=== PATIENT | male | born 1950 | race Caucasian/White ===

== ENCOUNTER 2023-11-06 14:28 | Inpatient (IN) | payer MEDICARE, MEDICAID ==
[~2023-11-06] VITALS: Ht 172.7 cm; Wt 68.2 kg
[~2023-11-06 14:28] MED LIST: FLO0.4C PO; METH20TA PO; OMEP-84 PO
[2023-11-06] MEDS: normal saline 1000ml 1,000 ML IV ONE (15:37)
[2023-11-06 16:01] LABS: EOSINOPHILS % (AUTO) 0.1 % (0-6); HEMOGLOBIN 12.7 g/dl (14.0-17.9); MEAN PLATELET VOLUME 7.1 FL (7.4-10.4); MONOCYTES # (AUTO) 0.5 X10'3 (0-0.9)
[2023-11-06 16:03] LABS: BASOPHILS # (AUTO) 0.1 X10'3 (0-0.2); BASOPHILS % (AUTO) 0.5 % (0-1); HEMATOCRIT 37.9 % (42.0-52.0); LYMPHOCYTES # (AUTO) 9.5 X10'3 (1.1-4.8); LYMPHOCYTES % (AUTO) 55.4 % (21-51); MEAN CORPUSCULAR HGB CONC 33.4 g/dL (33.0-36.5); MEAN CORPUSCULAR VOLUME 92.7 FL (78-98); MONOCYTES % (AUTO) 2.9 % (2-12); NEUTROPHILS # (AUTO) 7.1 X10'3 (1.8-7.7); NEUTROPHILS % (AUTO) 41.1 % (42-75); PLATELET COUNT 382 X10'3 (140-440); RED BLOOD COUNT 4.09 X10'6 (4.70-6.10); RED CELL DISTRIBUTION WIDTH 14.2 % (11.5-14.5); WHITE BLOOD COUNT 17.2 X10'3 (4.5-11.0)
[2023-11-06 16:33] LABS: ALANINE AMINOTRANSFERASE 83 U/L (12-78); ALBUMIN 2.6 G/DL (3.4-5.0); ALBUMIN/GLOBULIN RATIO 0.6 (1.1-1.5); ALKALINE PHOSPHATASE 64 IU/L (46-116); ANION GAP 10 (8-16); ASPARTATE AMINO TRANSFERASE 58 U/L (10-37); BILIRUBIN,TOTAL 0.6 MG/DL (0.1-1.0); BLOOD UREA NITROGEN 17 MG/DL (7-18); BUN/CREATININE RATIO 11.3 (10.0-20.0); CALCIUM 8.6 MG/DL (8.5-10.1); CHLORIDE 106 MMOL/L (99-107); GLUCOSE 122 MG/DL (70-104); POTASSIUM 3.6 MMOL/L (3.5-5.1); SODIUM 142 MMOL/L (135-145); TOTAL CARBON DIOXIDE 26.3 MMOL/L (24-32); TOTAL PROTEIN 6.7 G/DL (6.4-8.2); eCRCL 41 ML/MIN; eGFR 46 ML/MIN
[2023-11-06 18:20] LABS: BILIRUBIN,URINE NEGATIVE (Neg); CLARITY,URINE SLIGHTLY CLOUDY (Clear); COLOR,URINE YELLOW (Yellow); GLUCOSE, URINE NEGATIVE (Neg); KETONES,URINE TRACE mg/dl (Neg); LEUKOCYTE ESTERASE ,URINE NEGATIVE (Neg); NITRITES, URINE NEGATIVE (Neg); OCCULT BLOOD,URINE TRACE-INTACT (Neg); PROTEIN,URINE NEGATIVE (Neg); UROBILINOGEN,URINE 0.2 E.U/dL (0.2-1.0)
[2023-11-06 18:21] LABS: UA COLLECTION TYPE CLN CATCH MIDSTREAM
[2023-11-06 18:29] LABS: SQUAMOUS EPITHELIAL CELL,UR FEW /LPF (FEW)
[2023-11-06 18:32] LABS: BACTERIA,URINE FEW /HPF (Neg); HYALINE CASTS 0-3 /LPF (NEGATIVE); SPERM MANY /HPF (NEGATIVE)
[2023-11-06] MEDS: CefTRIAXone 2gm/D5W 50ml BAG 50 ML IV STA (19:26)
[2023-11-06] MEDS ORDERED: TERA1CAP4 (19:51)
[2023-11-06] MEDS ORDERED: acetaminophen 325mg tablet PO PRN (20:25)
[2023-11-06] MEDS ORDERED: mag hydrox/Alum hydrox/simeth 30ml oral suspension PO PRN (20:25)
[2023-11-06] MEDS ORDERED: potassium Cl 20 mEq SR tablet PO PRN (20:25)
[2023-11-06] MEDS ORDERED: morphine 2 MG/ML inj. syringe IV PRN ×2 (20:25)
[2023-11-06] MEDS ORDERED: potassium Cl 40MEQ/1/2NS 520ml 520 ML IV PRN (20:25)
[2023-11-06] MEDS ORDERED: magnesium sulf-water 4G/100mL 100 ML IV PRN (20:25)
[2023-11-06] MEDS ORDERED: magnesium hydroxide 30ml (MOM) UD suspension PO PRN (20:25)
[2023-11-06] MEDS ORDERED: magnesium sulf-water 2g/50mL 50 ML IV PRN (20:25)
[2023-11-06] MEDS ORDERED: magnesium Cl slow-release 64mg tablet PO PRN (20:25)
[2023-11-06] MEDS ORDERED: ondansetron/PF 4mg/2ml inj IV PRN (20:25)
[2023-11-06 21:21] LABS: TOTAL CELLS COUNTED 100
[2023-11-06 21:22] LABS: PLATELET ESTIMATE NORMAL; SMUDGE CELLS 1+
[2023-11-06 21:55] VITALS: BP 148/89; PULSE 82; RESP 16; TEMP 97; O2SAT 95
[2023-11-06] MEDS: normal saline 1000ml 1,000 ML IV SCH (22:00)
[2023-11-06] MEDS: tamsulosin 0.4mg capsule PO SCH (23:53)
[2023-11-06] MEDS: pantoprazole 40 MG vial IV ONE (23:53)
[2023-11-07 04:10] LABS: BASOPHILS # (AUTO) 0.1 X10'3 (0-0.2); BASOPHILS % (AUTO) 0.5 % (0-1); EOSINOPHILS # (AUTO) 0.1 X10'3 (0-0.9); HEMOGLOBIN 11.8 g/dl (14.0-17.9); MEAN PLATELET VOLUME 7.5 FL (7.4-10.4); NEUTROPHILS # (AUTO) 5.4 X10'3 (1.8-7.7); RED CELL DISTRIBUTION WIDTH 14.1 % (11.5-14.5); WHITE BLOOD COUNT 18.2 X10'3 (4.5-11.0)
[2023-11-07 04:14] LABS: EOSINOPHILS % (AUTO) 0.6 % (0-6); HEMATOCRIT 35.4 % (42.0-52.0); LYMPHOCYTES # (AUTO) 11.8 X10'3 (1.1-4.8); LYMPHOCYTES % (AUTO) 64.9 % (21-51); MEAN CORPUSCULAR HEMOGLOBIN 30.8 PG (27.0-31.0); MEAN CORPUSCULAR HGB CONC 33.3 g/dL (33.0-36.5); MEAN CORPUSCULAR VOLUME 92.6 FL (78-98); MONOCYTES # (AUTO) 0.8 X10'3 (0-0.9); MONOCYTES % (AUTO) 4.4 % (2-12); NEUTROPHILS % (AUTO) 29.6 % (42-75); PLATELET COUNT 387 X10'3 (140-440); RED BLOOD COUNT 3.83 X10'6 (4.70-6.10)
[2023-11-07 04:19] LABS: APTT 26 SECONDS (22-32); INR 1.1 INR; PROTHROMBIN TIME 12.1 SECONDS (9.0-12.0)
[2023-11-07 04:30] LABS: ALANINE AMINOTRANSFERASE 69 U/L (12-78); ALBUMIN 2.2 G/DL (3.4-5.0); ALBUMIN/GLOBULIN RATIO 0.6 (1.1-1.5); ALKALINE PHOSPHATASE 55 IU/L (46-116); ANION GAP 9 (8-16); ASPARTATE AMINO TRANSFERASE 40 U/L (10-37); BILIRUBIN,TOTAL 0.5 MG/DL (0.1-1.0); BLOOD UREA NITROGEN 16 MG/DL (7-18); BUN/CREATININE RATIO 13.1 (10.0-20.0); CHLORIDE 108 MMOL/L (99-107); CREATININE 1.22 MG/DL (0.60-1.10); GLUCOSE 99 MG/DL (70-104); MAGNESIUM 1.9 MG/DL (1.5-2.4); PHOSPHORUS 2.9 MG/DL (2.3-4.5); POTASSIUM 3.4 MMOL/L (3.5-5.1); SODIUM 142 MMOL/L (135-145); TOTAL CARBON DIOXIDE 25.2 MMOL/L (24-32); TOTAL PROTEIN 5.7 G/DL (6.4-8.2); eCRCL 50 ML/MIN; eGFR 58 ML/MIN
[2023-11-07 04:48] LABS: PLATELET ESTIMATE NORMAL; SMUDGE CELLS 1+; TOTAL CELLS COUNTED 100
[2023-11-07 06:00] VITALS: BP 149/84; PULSE 75; RESP 16; TEMP 97.9; O2SAT 97
[2023-11-07] MEDS: pantoprazole 40mg Tablet.DR PO SCH (06:59)
[2023-11-07] MEDS: CefTRIAXone/D5W-Rocephin 1gm 50 ML IV SCH (07:02)
[2023-11-07] MEDS: K and/or MAG REPLACEMENT MC SCH (07:27)
[2023-11-07] MEDS: potassium Cl 20 mEq SR tablet PO PRN (07:32)
[2023-11-07] MEDS: methylphenidate 5mg tablet PO SCH (07:32)
[2023-11-07] MEDS: heparin, porcine 5000 units/ml vial SQ SCH (07:33)
[2023-11-07 08:00] VITALS: RESP 16; O2SAT 97
[2023-11-07] MEDS ORDERED: tamsulosin 0.4mg capsule PO SCH (08:00)
[2023-11-07] MEDS ORDERED: methylphenidate 5mg tablet PO SCH (08:00)
[2023-11-07] MEDS ORDERED: HYDROmorphone inj. 0.5 MG/0.5 ML DISP.SYRIN IV PRN (09:50)
[2023-11-07] MEDS: piperacillin/tazo 3.375gm/50ml 50 ML IV SCH (09:51)
[2023-11-07 10:00] VITALS: BP 139/82; PULSE 87; RESP 16; TEMP 97.3; O2SAT 95
[2023-11-07] MEDS ORDERED: HYDR-3965 PO (10:38)
[2023-11-07] MEDS: phenazopyridine 100mg tablet PO SCH (10:54)
[2023-11-07] MEDS ORDERED: LEVO-65 PO (15:39)
[2023-11-07] MEDS ORDERED: tamsulosin capsule PO (15:39)
[2023-11-07] MEDS ORDERED: PHEN-786 PO (15:39)
[2023-11-07] MEDS ORDERED: CEFD300C3 PO (15:39)
== END 2023-11-07 15:40 | disposition home health service (06) | DRG 690 ==
LOC: ER 14:28 → ED HOLD 20:29 → EDBEDREQ 20:50 → EDBEDREQTM 20:50 → ORTHO 4S 21:45
PROVIDERS: ADMIT Surgery Surgical Critical Care; ATTEND Internal Medicine
DX: N13.6 Pyonephrosis (principal); R10.9 Unspecified abdominal pain; N17.0 Acute kidney failure with tubular necrosis; K21.9 Gastro-esophageal reflux disease without esophagitis; G47.419 Narcolepsy without cataplexy; N40.0 Benign prostatic hyperplasia without lower urinary tract symptoms
CPT/HCPCS: 36415; 80053; 81001; 83605; 83735; 84100; 84145; 85007; 85025; 85610; 85730; 87040; 87081; 87088; 96365; 99285; A4314; A4358; A5200; G0378; J0696; J1644; J2470; J2543; J7030

== ENCOUNTER 2023-11-09 16:50 | Emergency (ER) | payer MEDICARE, MEDICAID ==
[~2023-11-09] VITALS: Ht 152.4 cm; Wt 78.7 kg
[~2023-11-09 16:50] MED LIST changes: +HYDR-3965 PO; +LEVO-65 PO; +PHEN-786 PO; +TERA1CAP4; +tamsulosin capsule PO
[2023-11-09 16:55] VITALS: TEMP 98.8
[2023-11-09 19:14] LABS: BASOPHILS # (AUTO) 0.1 X10'3 (0-0.2); EOSINOPHILS % (AUTO) 0.3 % (0-6)
[2023-11-09 19:16] LABS: BASOPHILS % (AUTO) 0.4 % (0-1); HEMATOCRIT 38.7 % (42.0-52.0); HEMOGLOBIN 12.8 g/dl (14.0-17.9); LYMPHOCYTES # (AUTO) 10.6 X10'3 (1.1-4.8); LYMPHOCYTES % (AUTO) 66.7 % (21-51); MEAN CORPUSCULAR HEMOGLOBIN 30.9 PG (27.0-31.0); MEAN CORPUSCULAR VOLUME 93.9 FL (78-98); MEAN PLATELET VOLUME 7.2 FL (7.4-10.4); MONOCYTES # (AUTO) 0.7 X10'3 (0-0.9); MONOCYTES % (AUTO) 4.4 % (2-12); NEUTROPHILS # (AUTO) 4.5 X10'3 (1.8-7.7); NEUTROPHILS % (AUTO) 28.2 % (42-75); PLATELET COUNT 403 X10'3 (140-440); RED BLOOD COUNT 4.13 X10'6 (4.70-6.10); RED CELL DISTRIBUTION WIDTH 14.6 % (11.5-14.5); WHITE BLOOD COUNT 15.9 X10'3 (4.5-11.0)
[2023-11-09 19:37] LABS: APTT 25 SECONDS (22-32); INR 1.1 INR; PROTHROMBIN TIME 11.5 SECONDS (9.0-12.0)
[2023-11-09 19:39] LABS: ALANINE AMINOTRANSFERASE 45 U/L (12-78); ALBUMIN 2.8 G/DL (3.4-5.0); ALBUMIN/GLOBULIN RATIO 0.7 (1.1-1.5); ALKALINE PHOSPHATASE 59 IU/L (46-116); ANION GAP 9 (8-16); ASPARTATE AMINO TRANSFERASE 25 U/L (10-37); BILIRUBIN,TOTAL 0.6 MG/DL (0.1-1.0); BLOOD UREA NITROGEN 16 MG/DL (7-18); BUN/CREATININE RATIO 11.1 (10.0-20.0); CALCIUM 8.5 MG/DL (8.5-10.1); CHLORIDE 107 MMOL/L (99-107); CREATINE KINASE 79 U/L (39-308); CREATININE 1.44 MG/DL (0.60-1.10); GLUCOSE 91 MG/DL (70-104); LIPASE 61 U/L (16-77); POTASSIUM 3.9 MMOL/L (3.5-5.1); SODIUM 143 MMOL/L (135-145); TOTAL CARBON DIOXIDE 27.5 MMOL/L (24-32); TOTAL PROTEIN 6.6 G/DL (6.4-8.2); eCRCL 31 ML/MIN; eGFR 48 ML/MIN
[2023-11-09 19:41] LABS: BILIRUBIN,URINE MODERATE (Neg); CLARITY,URINE TURBID (Clear); COLOR,URINE BROWN (Yellow); GLUCOSE, URINE 100 mg/dl (Neg); KETONES,URINE 15 mg/dl (Neg); LEUKOCYTE ESTERASE ,URINE SMALL (Neg); OCCULT BLOOD,URINE LARGE (Neg); PH,URINE 6.5 (4.8-8.0); PROTEIN,URINE >=300 mg/dl (Neg); UROBILINOGEN,URINE >=8.0 E.U/dL (0.2-1.0)
[2023-11-09 19:51] LABS: NITRITES, URINE NEGATIVE (Neg)
[2023-11-09 19:52] LABS: UA COLLECTION TYPE FOLEY CATH
[2023-11-09 19:56] LABS: BACTERIA,URINE 2+ /HPF (Neg); RBC,URINE TNTC /HPF (0-2); SQUAMOUS EPITHELIAL CELL,UR FEW /LPF (FEW)
[2023-11-09 20:20] VITALS: BP 137/63; PULSE 87; RESP 18; O2SAT 98
[2023-11-09 21:04] LABS: TOTAL CELLS COUNTED 100
[2023-11-09 21:05] LABS: PLATELET ESTIMATE NORMAL
[2023-11-09 21:06] LABS: SMUDGE CELLS 1+
== END 2023-11-09 21:40 | disposition home or self-care (01) ==
LOC: ER 16:51
DX: R31.9 Hematuria, unspecified (principal); R10.30 Lower abdominal pain, unspecified; K21.9 Gastro-esophageal reflux disease without esophagitis
CPT/HCPCS: 36415; 74176; 80053; 81001; 82550; 83690; 85007; 85025; 85610; 85730; 87088; 99284; A4314; A4358; A5200